=== PATIENT | female | born 1935 | race Caucasian/White ===

== ENCOUNTER 2016-06-06 01:50 | Emergency (ER) | payer OTHER, MEDICARE ==
[~2016-06-06] VITALS: Ht 160 cm; Wt 56.7 kg
[~2016-06-06 01:50] MED LIST: ALBUTEROL2.5 MG/3 M INH; ASPIRIN81 M4 PO; CLARITIN10 M1 PO; FLOVENT HFA10.6 GM INH; FOSAMAX70 M1 PO; GABAPENTIN100 M2 PO; KEFLEX500 M1 PO; MAGNESIUM400 M1 PO; PREDNISONE10 M2 PO; PROAIR HFA8.5 GM INH; RESTASIS1 EACH OPH; ROPINIROLE HCL0.5 MG PO; SYNTHROID88 MCG PO
--- NOTE | 2016-06-06 01:58 | ED DYSPNEA/ASTHMA COMPLAINT ---
History of Present Illness General Chief Complaint: Dyspnea (COPD, CHF, Other) Stated Complaint: BIBA SOB Source: patient, EMS Exam Limitations: no limitations Vital Signs & Intake/Output Vital Signs & Intake/Output Vital Signs Date Time Temp Pulse Resp B/P Pulse O2 O2 Flow FiO2 Ox Delivery Rate 06/06 222 90 Nasal 5.0L Cannula 06/07 211 97.7 108 22 162/104 98 Nasal 2.0L Cannula Allergies Coded Allergies: Penicillins (Intermediate, RASH 11/17/15) tetracycline (Intermediate, RASH 11/17/15) levofloxacin (UNKNOWN 11/17/15) Reconcile Medications Albuterol Sulfate (Proair Hfa) 8.5 GM HFA.AER.AD 2 PUF INH Q4-6 PRN PRN sob Alendronate Sodium (Fosamax) 70 MG TABLET 1 TAB PO SUNDAY OSTEOPOROSIS ( Reported) in the morning, at least 30 minutes before the first food, beverage, or medication of the day Aspirin (Aspirin*) 81 MG TAB.CHEW 1 TAB PO SUN, SUN HEART HEALTH (Reported) Budesonide/Formoterol Fumarate (Symbicort 160-4.5 Mcg Inhaler) 160 MCG-4.5 MCG/ ACTUATION HFA.AER.AD 2 PUF INH BID EMPHYSEMA (Reported) Cyclosporine (Restasis) 1 EACH DROPERETTE 1 GTT OPH BID DRY EYE (Reported) Gabapentin 100 MG CAPSULE 1 CAP PO QHS LEG CRAMPS (Reported) Levothyroxine Sodium (Synthroid) 88 MCG TABLET 1 TAB PO DAILY HYPOTHYROID ( Reported) Ropinirole HCl 0.5 MG TABLET 1 TAB PO QPM RESTLESS LEG (Reported) Umeclidinium Brm/Vilanterol Tr (Anoro Ellipta 62.5-25 Mcg INH) 62.5 MCG-25 MCG/ ACTUATION BLST.W.DEV EMPHYSEMA (Reported) Triage Note: PT BIBA C/O INCREASING SOB X30-4O MINUTES. PT HAS HX OF EMPHYSEMA. RECEIVED 2 DUONEB'S BY EMS O2 SAT 99%. PT ARRIVES AXO, ANXIOUS. PT STATES SHE HAD A CORISONE SHOT AROUND 1400 YESTERDAY AND IS UNSURE IF SOB HAS TO DO WITH THAT. Triage Nurses Notes Reviewed? yes Onset: Abrupt Duration: minute(s): (30-40) Timing: single episode today Severity: moderate, severe Activities at Onset: rest Associated Symptoms: cough, chest pain, shortness of breath HPI: 80 y/o female history of COPD, thyroid issues presents with sudden onset shortness of breath and chest pain tonight. She thought she might have been having an allergic reaction to the cortisone injection she had in her back earlier today. Past History Travel History Traveled to [place] past 21 day No Medical History Any Pertinent Medical History? see below for history Neurological: restless leg syndrome Respiratory: emphysema Gastrointestinal: irritable bowel syndrome Endocrine: hypothyroidism Cancer(s): melanoma History of MRSA: No History of VRE: No History of CDIFF: No Pneumonia Vaccine: 03/31/15 Surgical History Surgical History: hysterectomy, U/L OOPHRECTOMY Psychosocial History What is your primary language Chadian Tobacco Use: Current Not Daily Family History Hx Contributory? No Review of Systems Review of Systems Constitutional: Denies: chills, fever. EENTM: Reports: no symptoms. Respiratory: Reports: short of breath. Denies: cough. Cardiovascular: Reports: chest pain. GI: Reports: no symptoms. Genitourinary: Reports: no symptoms. Musculoskeletal: Reports: no symptoms. Skin: Reports: no symptoms. Neurological/Psychological: Reports: ataxia. Hematologic/Endocrine: Denies: bleeding. Immunologic/Allergic: Reports: no symptoms. All Other Systems: Reviewed and Negative Physical Exam Physical Exam General Appearance: alert, awake, anxious, severe distress, thin Head: atraumatic, normal appearance Eyes: Bilateral: normal appearance, PERRL, EOMI. Ears, Nose, Throat: normal pharynx, normal ENT inspection Neck: normal inspection, supple, full range of motion Respiratory: normal breath sounds, chest non-tender, no respiratory distress Cardiovascular: regular rate/rhythm Peripheral Pulses: 2+ radial (R), 2+ radial (L) Extremities: normal inspection, normal capillary refill, normal range of motion, no edema Neurologic/Psych: no motor/sensory deficits, awake, alert, ANXIOUS Skin: intact, normal color, warm/dry Core Measures ACS in differential dx? Yes ASA ordered for poss ACS? Yes-ordered Severe Sepsis Present: No Septic Shock Present: No Progress Differential Diagnosis: AMI, CHF Plan of Care: Orders Procedure Date/time Status XRY-PORTABLE CHEST XRAY 06/06 200 Active Telemetry/Bone Density Technician 06/06 200 Active TROPONIN LEVEL 06/06 200 Active PARTIAL THROMBOPLASTIN TIME 06/06 200 Active PROTHROMBIN TIME 06/06 200 Active COMPREHENSIVE METABOLIC PANEL 06/06 200 Active CBC WITHOUT DIFFERENTIAL 06/06 200 Active B-TYPE NATRIURETIC PEP (BNP) 06/06 200 Active EKG 06/06 015 Active Laboratory Tests 06/06/16 0215: Sodium Pending, Potassium Pending, Chloride Pending, Carbon Dioxide Pending, Anion Gap Pending, BUN Pending, Creatinine Pending, BUN/Creatinine Ratio Pending , Glucose Pending, Calcium Pending, Total Bilirubin Pending, AST Pending, ALT Pending, Alkaline Phosphatase Pending, Troponin I Pending, Mkc-O-[id number] Pept Pending, Total Protein Pending, Albumin Pending, Globulin Pending, Albumin/ Globulin Ratio Pending, PT Pending, INR Pending, APTT Pending, CBC w Diff MAN DIFF ORDERED, WBC Pending, RBC Pending, Hgb Pending, Hct Pending, MCV Pending, MCH Pending, RDW Pending, Plt Count Pending, MPV Pending, Gran % Pending, Lymphocytes % Pending, Monocytes % Pending, Eosinophils % Pending, Basophils % Pending, Absolute Granulocytes Pending, Segmented Neutrophils Pending, Absolute Lymphocytes Pending, Absolute Monocytes Pending, Absolute Eosinophils Pending, Absolute Basophils Pending, PUBS MCHC Pending D/W DR BOUCHER. WILL TRANSFER TO [facility] [employer] [facility] SPECIALIST. ASPIRIN, NITRO, BRILINTA, ZOFRAN, HEPARIN ADMINISTERED. (AUSTYN THOMPSON,ALEJANDRO) Initial ED EKG: NSR, ST elevation (V1-V4), ST depression (2, 3, AVF) Rhythm Strip: sinus tachycardia Departure Departure Time of Disposition: 236 Disposition: OTHER [facility] ([facility]) Condition: Stable Clinical Impression Primary Impression: STEMI (ST elevation myocardial infarction) Referrals: SANDRA BRITO MD (PCP/Family) Departure Forms: Customer Survey General Discharge Information Critical Care Note Critical Care Note Critical Care Time: 30-74 min
[2016-06-06 02:12] VITALS: BP 162/104
[2016-06-06 02:30] LABS: ABSOLUTE BASOPHIL COUNT 0 /CUMM (0.0-0.2); ABSOLUTE EOSINOPHIL COUNT 0 /CUMM (0.0-0.7); ABSOLUTE GRANULOCYTE CT 10.8 /CUMM (1.4-6.5); ABSOLUTE LYMPH COUNT 1.4 /CUMM (1.2-3.4); ABSOLUTE MONOCYTE COUNT 0.4 /CUMM (0.10-0.60); BASOPHIL % 0.3 % (0.0-2.0); EOSINOPHIL % 0 % (0-5); GRANULOCYTE % 85.5 % (42.2-75.2); HEMATOCRIT 44.8 % (37-47); MEAN CORPUSCULAR HGB 29.3 PG (27.0-31.0); MEAN CORPUSCULAR HGB CONC 32.4 G/DL (33.0-37.0); MEAN CORPUSCULAR VOLUME 90.4 FL (81.0-99.0); MEAN PLATELET VOLUME 8.1 FL (7.4-10.4); PLATELET COUNT 311 /CUMM (130-400); RBC DISTRIBUTION WIDTH 14.6 % (11.5-14.5); RED BLOOD CELL CT 4.96 /CUMM (4.20-5.40); WHITE BLOOD CELL COUNT 12.6 /CUMM (4.8-10.8)
[2016-06-06 02:39] LABS: PT 10.7 SEC (9.4-12.5); PTT 38 SEC (25-37)
== END 2016-06-06 02:11 | disposition short-term general hospital (02) ==
LOC: ERH 01:50
PROVIDERS: Emergency Medicine
DX: I21.3 ST elevation (STEMI) myocardial infarction of unspecified site (principal); R07.9 Chest pain, unspecified; Z72.0 Tobacco use
CPT/HCPCS: 93005; 93010; 99291; J1644; J2405; J3490

== ENCOUNTER 2016-06-13 05:56 | Emergency (ER) | payer OTHER, MEDICARE ==
[~2016-06-13] VITALS: Ht 164.5 cm; Wt 52.6 kg
[2016-06-13] MEDS ORDERED: SYMBICORT 16010.2 GM INH (06:02)
[2016-06-13] MEDS ORDERED: ANORO ELLIPTA1 EACH INH (06:03)
--- NOTE | 2016-06-13 06:04 | ED DYSPNEA/ASTHMA COMPLAINT ---
History of Present Illness General Chief Complaint: Dyspnea (COPD, CHF, Other) Stated Complaint: BIBA SOB Source: patient, old records, EMS Exam Limitations: no limitations Vital Signs & Intake/Output Vital Signs & Intake/Output Vital Signs Date Time Temp Pulse Resp B/P Pulse O2 O2 Flow FiO2 Ox Delivery Rate 06/13 0810 97.8 78 18 114/57 98 06/13 0603 94 Room Air 06/13 0558 96.8 100 18 145/75 94 Room Air Allergies Coded Allergies: Penicillins (Intermediate, RASH 11/17/15) tetracycline (Intermediate, RASH 11/17/15) levofloxacin (UNKNOWN 11/17/15) Reconcile Medications Albuterol Sulfate (Proair Hfa) 8.5 GM HFA.AER.AD 2 PUF INH Q4-6 PRN PRN sob Alendronate Sodium (Fosamax) 70 MG TABLET 1 TAB PO SUNDAY OSTEOPOROSIS ( Reported) in the morning, at least 30 minutes before the first food, beverage, or medication of the day Aspirin (Aspirin*) 81 MG TAB.CHEW 1 TAB PO SUN, SUN HEART HEALTH (Reported) Budesonide/Formoterol Fumarate (Symbicort 160-4.5 Mcg Inhaler) 160 MCG-4.5 MCG/ ACTUATION HFA.AER.AD 2 PUF INH BID EMPHYSEMA (Reported) Cyclosporine (Restasis) 1 EACH DROPERETTE 1 GTT OPH BID DRY EYE (Reported) Gabapentin 100 MG CAPSULE 1 CAP PO QHS LEG CRAMPS (Reported) Levothyroxine Sodium (Synthroid) 88 MCG TABLET 1 TAB PO DAILY HYPOTHYROID ( Reported) Ropinirole HCl 0.5 MG TABLET 1 TAB PO QPM RESTLESS LEG (Reported) Umeclidinium Brm/Vilanterol Tr (Anoro Ellipta 62.5-25 Mcg INH) 62.5 MCG-25 MCG/ ACTUATION BLST.W.DEV EMPHYSEMA (Reported) Triage Nurses Notes Reviewed? yes HPI: Patient woke up to go to the bathroom and she felt short of breath. Patient called 911 and then used her rescue inhaler. By the time EMS arrived she felt better but decided to come to the emergency room for evaluation. Patient currently has no complaints. Patient denies any orthopnea. There is no chest pain. Patient had a cardiac catheterization last week and was told that her heart was normal. Patient was also diagnosed with a pneumothorax last week but she did not require chest tube. (IRINA ORTIZ MD) Past History Travel History Traveled to [place] past 21 day No Medical History Any Pertinent Medical History? see below for history Neurological: restless leg syndrome EENT: NONE Cardiovascular: CARDIAC CATH Respiratory: emphysema, COLLAPSED LUNG Gastrointestinal: irritable bowel syndrome Hepatic: NONE Renal: NONE Musculoskeletal: NONE Psychiatric: NONE Endocrine: hypothyroidism Blood Disorders: NONE Cancer(s): melanoma MANAGER HRIS/Reproductive: NONE History of MRSA: No History of VRE: No History of CDIFF: No Surgical History Surgical History: hysterectomy, U/L OOPHRECTOMY Psychosocial History What is your primary language Bhutanese Tobacco Use: Quit >30 days ago ETOH Use: denies use Illicit Drug Use: denies illicit drug use Family History Hx Contributory? No (IRINA ORTIZ MD) Review of Systems Review of Systems Constitutional: Reports: no symptoms. EENTM: Reports: no symptoms. Respiratory: Reports: see HPI, short of breath (RESOLVED). Cardiovascular: Reports: no symptoms. GI: Reports: no symptoms. Genitourinary: Reports: no symptoms. Musculoskeletal: Reports: no symptoms. Skin: Reports: no symptoms. Neurological/Psychological: Reports: no symptoms. Hematologic/Endocrine: Reports: no symptoms. Immunologic/Allergic: Reports: no symptoms. All Other Systems: Reviewed and Negative (ANGEL THOMPSON,IRINA Doshi) Physical Exam Physical Exam General Appearance: well developed/nourished, alert, awake Head: atraumatic, normal appearance Eyes: Bilateral: PERRL, EOMI. Ears, Nose, Throat: normal pharynx, normal ENT inspection, hearing grossly normal Neck: normal inspection, supple, full range of motion, NO JVD Respiratory: normal breath sounds, chest non-tender, no respiratory distress, lungs clear Cardiovascular: regular rate/rhythm, normal peripheral pulses Gastrointestinal: normal bowel sounds, soft, non-tender, no organomegaly Extremities: normal inspection, normal capillary refill, normal range of motion, no edema Neurologic/Psych: no motor/sensory deficits, awake, alert, oriented x 3, normal mood/affect Skin: intact, normal color, warm/dry Lymphatic: no anterior cervical beckie Core Measures ACS in differential dx? No Severe Sepsis Present: No Septic Shock Present: No (IRINA ORTIZ MD) Progress Differential Diagnosis: asthma, AMI, bronchitis, COPD, pulmonary embolism, pneumothorax Plan of Care: Orders Procedure Date/time Status Regular Diet 06/13 B Active Telemetry/Burn Crew Member 06/13 600 Active TROPONIN LEVEL 06/13 600 Complete COMPREHENSIVE METABOLIC PANEL 06/13 600 Complete CBC WITHOUT DIFFERENTIAL 06/13 600 Complete EKG 06/13 600 Active Laboratory Tests 06/13/16 0639: Anion Gap 10, Estimated GFR > 60, BUN/Creatinine Ratio 31.7 H, Glucose 84, Calcium 9.9, Total Bilirubin 0.7, AST 41 H, ALT 41, Alkaline Phosphatase 59, Troponin I 0.06, Total Protein 6.0 L, Albumin 3.5, Globulin 2.5, Albumin/ Globulin Ratio 1.4 06/13/16 0605: CBC w Diff NO MAN DIFF REQ, RBC 4.79, MCV 90.3, MCH 29.3, RDW 14.7 H, MPV 8.1, Gran % 60.9, Lymphocytes % 25.4, Monocytes % 6.9, Eosinophils % 5.8 H, Basophils % 1.0, Absolute Granulocytes 4.3, Absolute Lymphocytes 1.8, Absolute Monocytes 0.5, Absolute Eosinophils 0.4, Absolute Basophils 0.1, PUBS MCHC 32.4 L Diagnostic Imaging: Viewed by Me: Radiology Read. Discussed w/RAD: Radiology Read. CXR Impression: PATIENT: MAXIMINO PONCE PRESENT AGE: 80 PATIENT ACCOUNT NO: [id number] : 35 LOCATION: [facility] ORDERING PHYSICIAN: IRINA ORTIZ MD SERVICE DATE: 06/13/16 EXAM TYPE: RAD - XRY-PORTABLE CHEST XRAY EXAMINATION: XR PORTABLE CHEST CLINICAL INFORMATION: Chest pain. COMPARISON: Chest radiograph 06/12/2016. TECHNIQUE: Portable AP view of the chest was obtained. FINDINGS: The small left apical pneumothorax has slightly reduced in size when compared to the previous examination from 2016. A small left basilar pneumothorax is grossly stable. There is no new consolidative disease. A trace left effusion is noted. Coarse linear markings within the lung bases may represent a manifestation of subsegmental atelectasis or scar. The cardiac silhouette and upper mediastinum contours are normal. No acute osseous finding. Cardiac leads overly the chest. IMPRESSION: The small left apical pneumothorax has slightly reduced in size when compared to prior imaging. Coarse linear markings within the lung bases most likely represent a manifestation of subsegmental atelectasis or scar. No overt consolidation. A trace left effusion is noted. DICTATED BY: BIANCA BROWN MD DATE/TIME DICTATED:06/13/16701 SPOON MAKER:GRIGGS DATE/TIME TRANSCRIBED:701 CONFIDENTIAL, DO NOT COPY WITHOUT APPROPRIATE AUTHORIZATION. < Electronically signed in Other Vendor System> SIGNED BY: BIANCA BROWN MD 06/13/16707 Initial ED EKG: NSR, nonspecific ST T wave chg Prior EKG: unchanged Hand-Off Endorsed To: MAMTA GRANT MD Endorsed Time: 07 Pending: labs (TROPONIN) (ANGEL THOMPSON,IRINA Doshi) CXR Impression: PATIENT: MAXIMINO PONCE PRESENT AGE: 80 PATIENT ACCOUNT NO: [id number] : 35 LOCATION: [facility] ORDERING PHYSICIAN: IRINA ORTIZ MD SERVICE DATE: 06/13/16 EXAM TYPE: RAD - XRY-PORTABLE CHEST XRAY EXAMINATION: XR PORTABLE CHEST CLINICAL INFORMATION: Chest pain. COMPARISON: Chest radiograph 06/12/2016. TECHNIQUE: Portable AP view of the chest was obtained. FINDINGS: The small left apical pneumothorax has slightly reduced in size when compared to the previous examination from 2016. A small left basilar pneumothorax is grossly stable. There is no new consolidative disease. A trace left effusion is noted. Coarse linear markings within the lung bases may represent a manifestation of subsegmental atelectasis or scar. The cardiac silhouette and upper mediastinum contours are normal. No acute osseous finding. Cardiac leads overly the chest. IMPRESSION: The small left apical pneumothorax has slightly reduced in size when compared to prior imaging. Coarse linear markings within the lung bases most likely represent a manifestation of subsegmental atelectasis or scar. No overt consolidation. A trace left effusion is noted. DICTATED BY: BIANCA BROWN MD DATE/TIME DICTATED:06/13/16701 SPOON MAKER:GRIGGS DATE/TIME TRANSCRIBED:701 CONFIDENTIAL, DO NOT COPY WITHOUT APPROPRIATE AUTHORIZATION. < Electronically signed in Other Vendor System> SIGNED BY: BIANCA BROWN MD 06/13/16 0708 Rhythm Strip: normal sinus rhythm Comments: No longer SOB. No CP. She thinks may have been anxiety attack. (MAMTA GRANT MD) Departure Departure Disposition: HOME OR SELF CARE Condition: Stable Additional Instructions: RETURN IF SYMPTOMS WORSEN OR FOR ANY CONCERNS Departure Forms: Customer Survey General Discharge Information (IRINA ORTIZ MD) Departure Time of Disposition: 813 Clinical Impression Primary Impression: Dyspnea Qualifiers: Dyspnea type: unspecified Qualified Code: R06.00 - Dyspnea, unspecified Secondary Impressions: Pneumothorax on left Referrals: ALISHA THOMPSON,SANDRA (PCP/Family) DELFINO HERNANDEZ MD (MAMTA GRANT MD) Critical Care Note Critical Care Note Critical Care Time: non-applicable (IRINA ORTIZ MD)
[2016-06-13 06:15] LABS: ABSOLUTE BASOPHIL COUNT 0.1 /CUMM (0.0-0.2); ABSOLUTE EOSINOPHIL COUNT 0.4 /CUMM (0.0-0.7); ABSOLUTE GRANULOCYTE CT 4.3 /CUMM (1.4-6.5); ABSOLUTE LYMPH COUNT 1.8 /CUMM (1.2-3.4); ABSOLUTE MONOCYTE COUNT 0.5 /CUMM (0.10-0.60); EOSINOPHIL % 5.8 % (0-5); GRANULOCYTE % 60.9 % (42.2-75.2); HEMATOCRIT 43.3 % (37-47); MEAN CORPUSCULAR HGB 29.3 PG (27.0-31.0); MEAN CORPUSCULAR HGB CONC 32.4 G/DL (33.0-37.0); MEAN CORPUSCULAR VOLUME 90.3 FL (81.0-99.0); MEAN PLATELET VOLUME 8.1 FL (7.4-10.4); PLATELET COUNT 274 /CUMM (130-400); RBC DISTRIBUTION WIDTH 14.7 % (11.5-14.5); RED BLOOD CELL CT 4.79 /CUMM (4.20-5.40)
--- NOTE | 2016-06-13 07:08 | RADIOLOGY REPORT ---
EXAMINATION: XR PORTABLE CHEST CLINICAL INFORMATION: Chest pain. COMPARISON: Chest radiograph 06/12/2016. TECHNIQUE: Portable AP view of the chest was obtained. FINDINGS: The small left apical pneumothorax has slightly reduced in size when compared to the previous examination from 06/12/2016. A small left basilar pneumothorax is grossly stable. There is no new consolidative disease. A trace left effusion is noted. Coarse linear markings within the lung bases may represent a manifestation of subsegmental atelectasis or scar. The cardiac silhouette and upper mediastinum contours are normal. No acute osseous finding. Cardiac leads overly the chest. IMPRESSION: The small left apical pneumothorax has slightly reduced in size when compared to prior imaging. Coarse linear markings within the lung bases most likely represent a manifestation of subsegmental atelectasis or scar. No overt consolidation. A trace left effusion is noted.
[2016-06-13 08:10] VITALS: BP 114/57
== END 2016-06-13 08:56 ==
LOC: ERH 05:56
PROVIDERS: Emergency Medicine
DX: J93.9 Pneumothorax, unspecified (principal); R06.00 Dyspnea, unspecified; Z87.891 Personal history of nicotine dependence
CPT/HCPCS: 93005; 93010